=== PATIENT | male | born 1990 | race African-American/Black ===

== ENCOUNTER 2016-07-14 18:21 | Emergency (ER) | payer SELFPAY ==
[2016-07-14 18:56] VITALS: BP 124/62; PULSE 63; TEMP 97.9; BMI 24.6
--- NOTE | 2016-07-14 19:19 | EDPRACDOC ---
- General Information Chief Complaint: Male Urogenital Problems Stated Complaint: HEADACHE URINATING BLOOD Time Seen by Provider: 07/14/16 19:08 Information Source: Patient Mode Of Arrival: Car Home Medications: Home Medications Cephalexin Monohydrate [Keflex] 500 mg PO Q6H #20 cap 07/14/16 Ibuprofen Tablet [Motrin] 800 mg PO TID PRN #30 tab 07/14/16 Allergies/Adverse Reactions: Allergies Allergy/AdvReac Type Severity Reaction Status Date / Time No Known Allergies Allergy Verified 07/14/16 19:01 - History of Present Illness HPI: PT HAS MULTIPLE COMPLAINTS, COMPLAINS OF FRONTAL THROBBING HEADACHE X 3 DAYS, "FEVER", LEFT LOWER TOOTH PAIN, STATES THAT HE HAS NOTICED BLOOD IN HIS URINE YESTERDAY AND TODAY, STATES URINE STARTS CLEAR AND THEN HAS "BRIGHT RED BLOOD" AT THE END. NO SORE THROAT, COUGH, CONGESTION, CHILLS, N/V/D, PT DENIES DYSURIA , FREQUENCY OR URGENCY, NO TESTICLE OR SCROTAL PAIN, NO KNOWN INJURY. Onset: 3 days Urinary Pain Location: Reports: None Pain Severity: None History of: Reports: None Associated Signs and Symptoms: Reports: Fever, Back Pain. Denies: Abdominal Pain, Nausea, Vomiting, Flank Pain, Penile Discharge ED Past Medical History - History Reviewed Yes Nurses notes reviewed and agree except as marked No Past Medical History: Yes Patient has no past medical history - Patient Medical History Psychological History: Denies: Depression - Social Medical History Smoking Status: Heavy tobacco smoker (5 or more cigarettes/day or daily pipe/ cigar) EDM Review of Systems - Review of Systems Constitutional: Fever Eyes: negative: Blurred Vision, Double Vision Ears: negative: Drainage Throat: negative: Pain Nose: negative: Congestion, Discharge Mouth: Tooth Pain Respiratory: negative: Cough, Shortness of Breath, Wheezing Cardiovascular: negative: Chest Pain, Palpitations Gastrointestinal: negative: Diarrhea, Nausea, Pain, Vomiting Genitourinary: Hematuria. negative: Dysuria, Frequency, Testicular Pain Neurological: Headache. negative: Dizziness, Numbness, Weakness Musculoskeletal: Back Integumentary: No Symptoms Reported - Physical Exam Constitutional: Alert (Awake), No apparent distress Oriented to: Time, Person, Place Last recorded Vital Signs: Last Vital Signs Temp 97.9 F 07/14/16 18:55 Pulse 63 07/14/16 18:55 Resp 18 07/14/16 18:55 BP 124/62 07/14/16 18:55 Pulse Ox 96 07/14/16 18:55 Oxygen Pulse Oxygen Saturation 96 O2 Device Room Air Oxygen Flow Rate Fraction of Inspired Oxygen ( FIO2) - HEENT Head: Normal ( normocephalic) Eye Exam: Normal (PERRL, EOMI, Sclera white) Oropharynx: Normal (Pharynx:Moist without exudate,Gums-no swelling) Tympanic Membrane: Normal ENT EAC: Normal TMJ: Normal Nose: No Symptoms Reported (septum midline) Neck: Normal (FROM, trachea at midline) - Respiratory/Cardiovascular Respiratory: Normal - CTA (BBS clear to auscultation without adventitious sounds ) Cardiovascular: Normal (RRR without murmur, gallop or rub) - Musculoskeletal Back: Normal (Non-Tender) Extremities: Normal (Normal tone, Pulses 2+ No cyanosis or edema, FROM) - Integumentary Skin: Normal, Warm, Dry Lymphatics: Normal (no adenopathy) - Neurologic Memory Impaired: Normal Motor Function: Normal (Normal tone, Pulses 2+ No cyanosis or edema, FROM) Cranial Nerve: Normal (CN II-X11 intact sensation, strength 5/5) Cerebellar: Normal Mood Description: Normal Perception: Normal - Differential Diagnosis Urethritis, UTI - Results 07/14/16 19:56 Laboratory Results - last 24 hr 07/14/16 18:57 Urine Color Yellow Urine Clarity Cldy Urine pH 5.0 Ur Specific [place] 1.025 Urine Protein Trace Urine Glucose (UA) Neg Urine Ketones Neg Urine Occult Blood 2+ H Urine Nitrite Neg Urine Bilirubin Neg Urine Urobilinogen 0.2 Ur Leukocyte Esterase Trace Urine RBC Tntc H Urine WBC 0-2 Urine Bacteria Few Urine Mucus Occ Decision Time to Discharge: 19:56 - Departure Disposition: Home Condition: Stable Final Diagnosis: Acute urinary tract infection Instructions: Urinary Tract Infection in Men (ED) Education/Counseling Given To: Patient Education/Counseling Given Regarding: Diagnosis, Treatment, Prognosis, Follow Up Referrals: Lorie Petty MD [Staff Physician] - One Week Prescriptions: Cephalexin Monohydrate [Keflex] 500 mg PO Q6H #20 cap Ibuprofen Tablet [Motrin] 800 mg PO TID PRN #30 tab PRN Reason: Pain Additional Instructions: RETURN TO THE ED FOR ANY WORSENING SYMPTOMS OR CONCERNS. ED Tooth Problem Exam - HEENT Face: Normal Teeth: Left: Molar-3 Lower (TENDER, CARIOUS, BROKEN) Gingiva: Normal Palate: Normal Mouth Range of Motion: Normal Sinuses: Normal Oropharynx: Normal Neck: Normal
[2016-07-14 19:49] LABS: RBC/URINE TNTC (0-2); WBC/URINE 0-2 (0-2)
[2016-07-14 19:50] LABS: URINE OCCULT BLOOD 2+ (NEG/TRACE)
[2016-07-14 19:51] LABS: LEUKOCYTES/URINE TRACE (NEGATIVE); NITRITE/URINE NEG (NEGATIVE)
== END 2016-07-14 20:10 | disposition home or self-care (01) ==
LOC: EDMC 18:21
DX: N39.0 Urinary tract infection, site not specified (principal)
CPT/HCPCS: 81001; 99282